=== PATIENT | male | born 1995 | race Caucasian/White ===

== ENCOUNTER 2023-11-20 13:15 | Emergency (ER) | payer MEDICAID, SELFPAY ==
[2023-11-20 13:26] VITALS: BP 145/106
[2023-11-20 13:41] LABS: % Basophils 0.3 % (0-2); % Eosinophils 1.4 % (0-6); % Immature Granulocytes 0.4 % (0-0.5); % Monocytes 5.5 % (1.7-9.3); % Neutrophils 74.4 % (42.2-75.2); Absolute Eosinophils 0.1 10^3/uL (0-0.7); Absolute Lymphocytes 1.3 10^3/uL (1.2-3.4); Absolute Monocytes 0.4 10^3/uL (0.1-0.6); Absolute Neutrophils 5.3 10^3/uL (1.4-6.5); Hematocrit 44.6 % (39.0-52.0); Hemoglobin 15.7 g/dL (13.0-18.0); Mean Corp Hgb Conc. 35.2 g/dL (33.0-37.0); Mean Corpuscular Hgb 28.8 pg (27.0-31.0); Mean Corpuscular Volume 81.7 fL (80.0-94.0); Mean Platelet Volume 9.9 fL (7.4-10.4); Nucleated Red Blood Cells % 0 % (-); Platelet Count 362 10^3/uL (130-400); Red Blood Cell Count 5.46 10^6/uL (4.70-6.10); Red Cell Dist. Width 13.1 % (11.5-14.5); White Blood Cell Count 7.1 10^3/uL (4.8-10.8)
[2023-11-20 14:23] LABS: ALT (SGPT) 16 U/L (0-50); AST (SGOT) 20 U/L (17-59); Albumin 5.1 g/dl (3.5-5.0); Alkaline Phosphatase 74 U/L (38-126); Blood Urea Nitrogen 13 mg/dl (9-20); Calcium 10.3 mg/dl (8.4-10.2); Carbon Dioxide 22 mmol/L (22-30); Chloride 105 mmol/L (98-107); Glucose 137 mg/dl (70-99); Potassium 4.7 mmol/L (3.5-5.1); Sodium 139 mmol/L (135-145); Total Bilirubin 1.2 mg/dl (0.2-1.3); eGFR > 60.00
[2023-11-20 14:31] LABS: TSH Reflex To Free T4 3.81 uIU/ml (0.47-4.68)
[2023-11-20 15:00] VITALS: BMI 24.9
[2023-11-20 15:15] VITALS: BP 119/75
[2023-11-20 16:03] LABS: Magnesium 2.4 mg/dl (1.6-2.3); Phosphorus 2.8 mg/dl (2.5-4.5)
--- NOTE | 2023-11-20 16:09 | ED.GENMED ---
History of Present Illness
General
Chief Complaint: Anxiety
Source: patient
Exam Limitations: none
Time Seen by Provider: 11/20/23 14:34
Travel History
Have you had any contact with someone who has COVID-19?: No
Do you have any symptoms of coronavirus? Fever > 100 degrees, chills, cough, shortness of breath, sore throat, loss of taste or smell, muscle aches, or headache?: No
History of Present Illness
History of Present Illness:
28-year-old male complaining of shakiness diffuse paresthesias for months. Ongoing multiple medical complaints for years. Has had multiple testing including multiple MRIs, labs, hormonal testing. Has seen multiple specialist in the past. Patient
is concerned also about his of present woo and need for more.
Past History
Past History
ED Past Medical History: Hypothyroidism and Other (Anxiety)
Social History
Tobacco: Non-smoker
Employment: Employed
Review of Systems
Review of Systems
All Other Systems: Not applicable
Constitutional: Denies fever
Respiratory: Reports no symptoms
Cardiac: Reports no symptoms
Phy Exam
Physical Exam
Physical Exam:
GENERAL: Alert and oriented in no apparent distress
EYE: Orbits normal.
NECK: Supple, no thyroid palpable
ENT: Pharynx without erythema
CARDIAC: Regular rate and rhythm without any obvious murmurs.
LUNGS: Clear breath sounds,normal
ABDOMEN: Soft, without focal tenderness or distention
NEUROLOGICAL: Alert and oriented , speech normal. Cranial nerves II through XII intact. Patellar reflexes intact. Gait normal. Finger dexterity using his computer normal.
SKIN: Warm and dry, no rash or lesion, no discoloration, skin intact.
MUSCULOSKELETAL: No edema,no deformity.Good color
PSYCH: Normal and appropriate interaction.
Course
Orders/Labs/Results
Orders:
Orders
11/20/23 13:35
Complete Blood Count/With Diff Urgent
Comprehensive Metabolic Panel Urgent
Magnesium Urgent
Comment: ADD
Phosphorus Urgent
Comment: ADD
TSH Reflex To Free T4 Urgent
11/20/23 14:46
Add On- LAB Urgent
Tests Added?: magnesium,phos
Abnormal Lab Results
11/20/23
13:35
Lymphocytes % 18.0 L %
(20.5-51.1)
Glucose 137 H mg/dl
(70-99)
Calcium 10.3 H mg/dl
(8.4-10.2)
Magnesium 2.4 H mg/dl
(1.6-2.3)
Albumin 5.1 H g/dl
(3.5-5.0)
11/20/23 13:35
11/20/23 13:35
Vital Signs
Initial and Last Documented VS:
Initial Vital Signs
Temp Pulse Resp BP Pulse Ox
99.1 F 117 18 145/106 96
11/20/23 13:26 11/20/23 13:26 11/20/23 13:26 11/20/23 13:26 11/20/23 13:26
Last Documented Vital Signs
Temp Pulse Resp BP Pulse Ox
99.1 F 71 18 119/75 98
11/20/23 13:26 11/20/23 15:15 11/20/23 15:15 11/20/23 15:15 11/20/23 15:15
*Pulse Oximetry
Patient hypoxic: no
*Critical Care Note
Total Time (30-74mins, 75-104mins- exclusive of procedures): Not Applicable
Update Note
Update Note:
Multiple reviews of his records. The only positive finding I could find was an DARRYN that was positive in the past. Neurologically he is stable. No focality. I will not come up with a definitive answer for his ongoing symptoms. Warrants
follow-up. Possible microadenoma pituitary by MRI.
ED Attending Note
-
Portions of this chart may have been created with voice recognition software.� Occasional wrong word or��sound alike� substitutions may have occurred due to the inherent limitations of voice recognition software.
Discharge Plan
Departure
Patient Disposition: Home (Routine Discharge)
Date of Disposition: 11/20/23
Time of Disposition: 16:11
Patient with high blood pressure during this ER visit?: Yes
Discharge Problem:
Ongoing paresthesias
Instructions: Paresthesia (DC), BLOOD PRESSURE
Activity Restrictions/Additional Instructions:
As we discussed, follow-up with your primary physician concerning her medication.
Also consider follow-up with neurology endocrine and rheumatology as we discussed
Interventions
Interventions:
*Risk Screen - Suicide Last Done: 11/20/23 13:26
*General Assessment Last Done: 11/20/23 13:26
*Neglect/Abuse Screening Last Done: 11/20/23 13:26
ED- Fall Risk Assessment Last Done: 11/20/23 15:00
*ED COVID-19 Vaccine History Last Done: 11/20/23 15:00
*Nursing Disposition Last Done: 11/20/23 16:27
ED-Psychological Assessment Last Done: 11/20/23 15:00
Discharge Date and Time
Discharge Date/Time: 11/20/23 16:27
Print Language: KOREAN
== END 2023-11-20 16:27 | disposition home or self-care (01) ==
LOC: EMR 13:15
PROVIDERS: EMERGENCY PHYSICIAN Emergency Medicine; FAMILY PHYSICIAN Family Medicine
DX: R20.2 Paresthesia of skin (principal); F41.9 Anxiety disorder, unspecified; E03.9 Hypothyroidism, unspecified
CPT/HCPCS: 99282; 80053; 83735; 84100; 84443; 85025